=== PATIENT | female | born 1995 | race Two or more races ===

== ENCOUNTER → 2022-02-18 | Outpatient (CLI) | payer OTHER | END | disposition home or self-care (01) | LOC: OBS/DEL 16:45 | PROVIDERS: ATTEND Obstetrics & Gynecology | DX: O98.813 Other maternal infectious and parasitic diseases complicating pregnancy, third trimester (principal); O47.03 False labor before 37 completed weeks of gestation, third trimester; Z3A.38 38 weeks gestation of pregnancy ==